=== PATIENT | male | born 1980 | race Caucasian/White ===

== ENCOUNTER 2018-12-27 09:24 | Emergency (ER) | payer OTHER ==
[2018-12-27 09:35] VITALS: BP 140/95
--- NOTE | 2018-12-27 10:13 | ER Document Report ---
HPI - HPI Time Seen by Provider: 12/27/18 10:08 Notes: Patient is a 38-year-old male with no significant past medical history presents complaining right lateral foot pain status post injury last night. Patient states that he jumped up and landed on the lateral side of the foot. Patient states that he has had some warmth and tingling in that foot and some pain since then but worse with weightbearing. Patient states that he is otherwise able to walk. Pain does not radiate. He has not noticed any swelling or bruising. Denies drug allergies. Denies any headache, fever, neck pain, URI, sore throat, chest pain, palpitations, syncope, cough, shortness of breath, wheeze, dyspnea, abdominal pain, nausea/vomiting/diarrhea, urinary retention, dysuria, hematuria, loss of control of bowel or bladder, numbness/tingling, saddle anesthesia, muscle paralysis/weakness, or rash. - ROS Systems Reviewed and Negative: Yes All other systems reviewed and negative Past Medical History - Social History Smoking Status: Never Smoker Family History: Reviewed & Not Pertinent Vertical Provider Document - CONSTITUTIONAL Agree With Documented VS: Yes Notes: PHYSICAL EXAMINATION: GENERAL: Well-appearing, well-nourished and in no acute distress. LUNGS: Breath sounds clear to auscultation bilaterally and equal. No wheezes rales or rhonchi. HEART: Regular rate and rhythm without murmurs, rubs, gallops. Musculoskeletal: Rt foot/ankle: No swelling. No ecchymosis or deformity. FROM to passive/active. Strength 5+/5. N/V intact distal. + tenderness to the lateral foot. No bony tenderness of the ankle or foot otherwise. Achilles intact. Lis Franc maneuver neg. Anterior drawer neg. Extremities: No cyanosis, clubbing, or edema b/l. Peripheral pulses 2+. Capillary refill less than 3 seconds. NEUROLOGICAL: Normal speech, normal gait. Normal sensory, motor exams PSYCH: Normal mood, normal affect. SKIN: Warm, Dry, normal turgor, no rashes or lesions noted. Course - Re-evaluation Re-evalutation: 12/27/18 Patient is an afebrile, well-hydrated, 38-year-old male who presents to the ED with a fracture to the mid shaft 5th metatarsal. Vitals are acceptable without any significant tachycardia, tachypnea, or hypoxia. PE is otherwise unremarkable for any neurovascular compromise, obvious tendon/ligament rupture, open fracture, septic joint. See XR result. post op shoe and crutches pro vided. Patient declined any Tylenol or Motrin at this time. Patient is nontoxic-appearing. No other labs or imaging warranted at this time based on H&P. Conservative measures otherwise for symptoms. Recheck with your PCM in 3- 5 days. Call orthopedics tomorrow to schedule an appointment for further evaluation and management. Return to the ED with any worsening/concerning symptoms otherwise as reviewed in discharge. Patient is in agreement. - Vital Signs Vital signs: Temp Pulse Resp BP Pulse Ox 98.3 F 77 16 140/95 H 99 12/27/18 09:34 12/27/18 09:34 12/27/18 09:34 12/27/18 09:34 12/27/18 09:34 Discharge - Discharge Clinical Impression: Nondisplaced fracture of fifth right metatarsal bone Qualifiers: Encounter type: initial encounter Fracture type: closed Qualified Code(s): S9 2.354A - Nondisplaced fracture of fifth metatarsal bone, right foot, initial encounter for closed fracture Condition: Stable Disposition: HOME, SELF-CARE Additional Instructions: Rest, Ice, Compression, Elevation Use crutches/splint as directed Tylenol/ibuprofen as needed F/u with your PCP in 3-5 days for a recheck Call orthopedics tomorrow to schedule an appointment for further evaluation and management Return to the ED with any worsening symptoms and/or development of fever, headache, chest pain, palpitations, syncope, shortness of breath, trouble breathing, abdominal pain, n/v/d, muscle weakness/paralysis, numbness/tingling, swelling, redness, or other worsening symptoms that are concerning to you. Forms: Elevated Blood Pressure Referrals: AG MAST JR, DO [ACTIVE PROVISIONAL STAFF] - Follow up as needed
--- NOTE | 2018-12-27 11:00 | RADIOLOGY REPORT (SQ) ---
EXAM DESCRIPTION: FOOT RIGHT COMPLETE COMPLETED DATE/TIME: 12/27/2018 10:28 am REASON FOR STUDY: rt lateral foot pain s/p injury COMPARISON: None. NUMBER OF VIEWS: Three views. TECHNIQUE: AP, lateral and oblique radiographic images acquired of the right foot. LIMITATIONS: None. FINDINGS: MINERALIZATION: Normal. BONES: Acute nondisplaced spiral fracture left 5th metatarsal diaphysis, nonangulated. No extension into the MTP joint. JOINTS: No effusions. SOFT TISSUES: Lateral left foot soft tissue swelling. No foreign body. OTHER: Small plantar calcaneal spur. IMPRESSION: Acute nondisplaced nonangulated spiral fracture, left 5th metatarsal diaphysis TECHNICAL DOCUMENTATION: JOB ID: [id number] [employer]- All Rights Reserved Reading location - IP/workstation name: [email or web address]
== END 2018-12-27 11:30 | disposition home or self-care (01) ==
LOC: ER 09:24
DX: S92.354A Nondisplaced fracture of fifth metatarsal bone, right foot, initial encounter for closed fracture (principal); M79.671 Pain in right foot; X58.XXXA Exposure to other specified factors, initial encounter
CPT/HCPCS: 99283